=== PATIENT | male | born 1995 | race Caucasian/White ===

== ENCOUNTER 2018-01-13 14:08 | Emergency (ER) | payer OTHER ==
[~2018-01-13] VITALS: Ht 172.7 cm; Wt 70.9 kg
[2018-01-13 14:10] VITALS: Ht 172.7 cm; Wt 70.9 kg
[2018-01-13] MEDS ORDERED: DOXYCYCLINE HYCLATE 100 MG CAP PO STA (14:43)
[2018-01-13 15:02] VITALS: BP 153/90; PULSE 78; TEMP 36.4; O2SAT 99
--- NOTE | 2018-01-13 17:09 | EMERGENCY ROOM VISIT NOTE ---
ED Visit Note First contact with patient: 14:14 CHIEF COMPLAINT: Tick in the left buttock HISTORY OF PRESENT ILLNESS: This 22-year-old white male patient noticed a tick embedded in his left buttock 4 days ago. He was unsure if it was a tick at that time. Today he realized it was a tick. He attempted to remove the tick but it broke off. A portion of the head remains embedded in the skin. It has been on for about 4 days. They deny any fevers, chills, sweats, joint aches, nausea, vomiting, or increasing redness. There is a small area of discoloration around the tick bite. pain is 1/10. REVIEW OF SYSTEMS: Head: No headache, injury or neck pain. Neck: No pain, stiffness, or swelling. Neurological: No headache, new changes in mental status, vertigo, focal weakness, numbness. Gastrointestinal: No abdominal pain , blood in stools, diarrhea, loss of appetite, nausea, or vomiting. General: No fever or chills, fatigue, loss of appetite, or significant recent weight gain or loss. Musculoskeletal: No joint aches or joint swelling. Previous surgeries: None Medical history: Benign Current Medications: None Allergies: NKDA Family History: Noncontributory SOCIAL HISTORY: Single. Employed. No tobacco use. PHYSICAL EXAM: Vital Signs: Afebrile. Mildly hypertensive. Reviewed and filed in patient's chart. Skin: Warm and dry with good turgor. No rashes or lesions. No evidence of erythema migrans. Patient has a small black foreign body embedded in the skin. It appears to be the head of a tick. There is a small area of discoloration around the tick bite. It measures 4 mm. in diameter. The patient is not diaphoretic. No abrasions. Procedure: Skin was cleansed with an alcohol swab. 18-gauge needle was used to gently remove all of the tick parts. This was done under magnification. Wound was cleansed again with an alcohol swab and covered with a Band-Aid. DIAGNOSIS: Foreign body ( tick) in the left buttock DISCHARGE INSTRUCTIONS & TREATMENT: Patient was educated regarding today's findings. Conservative care measures were discussed. He should follow-up with his PCP to have his blood pressure rechecked. Watch the area for signs of infection. Keep bacitracin on it for a few days. tick bite handout was provided. Tylenol every 6 hours as needed for discomfort. Follow-up with his PCP as needed. Prophylaxis for Lyme disease was instituted by giving the patient a one time dose of doxycycline 200 mg orally. Vital Signs Date Time Temp Pulse Resp B/P (MAP) Pulse Ox O2 Delivery O2 Flow Rate FiO2 01/13/18 15:02 36.4 78 16 153/90 99 01/13/18 14:10 36.4 78 16 153/90 99 Room Air Medications Administered Medications (Trade) Dose Ordered Sig/Sahne Route Start Time Stop Time Status Last Admin Dose Admin Doxycycline Hyclate (Vibramycin Cap) 200 mg NOW STAT PO 01/13/18 14:43 01/13/18 14:45 DC 01/13/18 14:57 200 MG Departure Information Impression Primary Impression: Tick bite Dispostion Home / Self-Care Condition [employer] HOME CARE DOCUMENTATION FORM, TYLENOL USE, IMPORTANT VISIT INFORMATION Patient Instructions Bites Tick, My Likelii Additional Instructions Cleanse the area with soap and water daily Watch for any large bull's-eye rash over the next 4 weeks and follow-up with your PCP if that should occur
== END 2018-01-13 15:02 | disposition home or self-care (01) ==
LOC: C.EDB 14:09 → C.EDD 15:02
DX: S30.860A Insect bite (nonvenomous) of lower back and pelvis, initial encounter (principal); W57.XXXA Bitten or stung by nonvenomous insect and other nonvenomous arthropods, initial encounter